=== PATIENT | female | born 1995 | race Caucasian/White ===

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

== ENCOUNTER 2023-05-16 22:41 | Emergency (ER) | payer OTHER ==
[2023-05-16 22:59] VITALS: PULSE 72; BMI 30.9
[2023-05-16 23:58] LABS: EPI CELLS 18 /uL (0-25.1); HYALINE CASTS 0 /uL (0-3.1); URINE APPEARANCE CLEAR; URINE BACTERIA 11 /uL (0-1359); URINE BILIRUBIN NEGATIVE (NEGATIVE); URINE COLOR RED; URINE GLUCOSE (UA) NEGATIVE (NEGATIVE); URINE KETONE NEGATIVE (NEGATIVE); URINE LEUK ESTERASE TRACE (NEGATIVE); URINE NITRITE NEGATIVE (NEGATIVE); URINE PROTEIN TRACE (NEGATIVE); URINE RBC 9599 /uL (0-23.9); URINE UROBILINOGEN 0.2 mg/dL (0.2-1.0); URINE WBC 25 /uL (0-25.8)
[2023-05-17 00:04] LABS: HCG,QUALITATIVE URINE Negative
[2023-05-17] MEDS ORDERED: LIDOCAINE 4% PATCH TP ONE (00:06)
[2023-05-17] MEDS ORDERED: ACETAMINOPHEN 325 MG TABLET (FP) ONE (00:06)
[2023-05-17] MEDS: ACETAMINOPHEN 500 MG TABLET (FP) PO ONE (00:09)
[2023-05-17] MEDS: LIDOCAINE 4% PATCH TP ONE (00:09)
[2023-05-17 01:03] LABS: BASO % 0.9 % (0-2.0); EOS % 2.4 % (0-4.5); HEMATOCRIT 38.3 % (32.4-45.2); LYMPH % 44.5 % (8-40); MCH 29.4 pg (25.7-33.7); MEAN CELL VOLUME 86.5 fl (80-96); MEAN PLT VOLUME 8.5 fl (7.5-11.1); MONO % 8.2 % (3.8-10.2); PLATELET COUNT 242 10^3/uL (134-434); RBC 4.43 M/mm3 (3.60-5.2); RDW 13.2 % (11.6-15.6); WHITE BLOOD COUNT 7.4 K/mm3 (4.0-10.0)
[2023-05-17] MEDS ORDERED: METHOCARBAMOL 500 MG TABLET ONE (01:05)
[2023-05-17] MEDS: METHOCARBAMOL 500 MG TABLET PO ONE (01:09)
[2023-05-17 01:21] LABS: POTASSIUM 3.9 mmol/L (3.5-5.1)
[2023-05-17 01:25] LABS: ALBUMIN 3.6 g/dl (3.4-5.0); BLOOD UREA NITROGEN 9.7 mg/dL (7-18)
[2023-05-17 01:28] LABS: CREATININE 0.7 mg/dL (0.55-1.3)
[2023-05-17 01:30] LABS: BILIRUBIN,TOTAL 0.7 mg/dL (0.2-1); TOT PROT 7.8 g/dl (6.4-8.2)
[2023-05-17] MEDS: KETOROLAC TROMETHAMINE 10 MG TABLET PO ONE (02:53)
[2023-05-17 03:27] VITALS: BP 118/82; RESP 16; TEMP 97.8
[2023-05-17] MEDS ORDERED: LIDOCAINE PATCH REMOVAL MC ONE (12:00)
== END 2023-05-17 03:28 | disposition home or self-care (01) ==
LOC: JER 22:41
DX: R10.32 Left lower quadrant pain (principal); M54.50 Low back pain, unspecified; N83.202 Unspecified ovarian cyst, left side; N94.6 Dysmenorrhea, unspecified
CPT/HCPCS: 36415; 76830-TC; 80053; 81003; 83690; 84703; 85025; 86850; 86900; 86901; 87086; 99284-25